=== PATIENT | female | born 2000 | race Caucasian/White ===

== ENCOUNTER 2022-01-26 13:14 | Emergency (ER) | payer OTHER, SELFPAY ==
[2022-01-26] VITALS (9 sets, daily range): BP systolic 92–115; BP diastolic 61–78; PULSE 92–115; RESP 12–20; TEMP 36.8; O2SAT 95–99
--- NOTE | 2022-01-26 13:23 | ECG_ITS ---
Measurements Intervals [place] Rate: 113 P: 28 DE: 126 QRS: 53 QRSD: 78 T: 34 QT: 306 QTc: 420 Interpretive Statements SINUS TACHYCARDIA BORDERLINE ECG COMPARED TO ECG 09/03/2018 23:09:02 NO SIGNIFICANT CHANGE Electronically Signed On 01-26-2022 18:28:20 CDT by Ayad Ritchie M.D.
[2022-01-26 13:36] LABS: Basophils Absolute Auto 0.1 K/mm3 (0.0-0.1); Basophils Percent Auto 0.8 % (0.2-1.2); Eosinophils Absolute Auto 0.5 K/mm3 (0-0.3); Eosinophils Percent Auto 8.3 % (0-4.4); Hematocrit 41.2 % (37.0-47.0); Hemoglobin 13.6 g/dL (12.0-15.0); Immature Granulocyte Absolute 0.01 K/mm3 (0.00-0.031); Immature Granulocyte Percent A 0.2 % (0-0.5); Lymphocytes Absolute Auto 1.68 K/mm3 (0.9-3.2); Lymphocytes Percent Auto 25.8 % (18.3-44.2); Mean Corpuscular Hemoglobin 30.7 pg (26-34); Mean Platelet Volume 10.3 fl (7.4-10.4); Monocytes Absolute Auto 0.7 K/mm3 (0.1-0.6); Monocytes Percent Auto 11.1 % (2.6-8.5); Neutrophils Absolute Auto 3.5 K/mm3 (1.3-6.7); Neutrophils Percent Auto 53.8 % (45.5-73.1); Platelet Count Result 470 k/mm3 (150-375); Red Blood Count 4.43 M/mm3 (4.2-5.4); Red Cell Distribution Width 12.5 % (11.5-14.5); White Blood Count 6.5 K/mm3 (4.5-10.0)
[2022-01-26 13:47] LABS: Alanine Aminotransferase 162 U/L (6-35); Albumin Level 4.6 g/dL (3.5-5.1); Alkaline Phosphatase 93 U/L (38-126); Anion Gap 10 mmol/L (8-16); Aspartate Amino Transferase 101 U/L (14-36); Bilirubin,Total 0.4 mg/dL (0.2-1.3); Blood Urea Nitrogen 15 mg/dL (7-17); Carbon Dioxide 30 mmol/L (22-30); Chloride 102 mmol/L (98-107); Estimated CRCL calculation 160 ml/min; Estimated Glomerular Filt Rate > 60; Glucose 111 mg/dL (65-110); Potassium 4.5 mmol/L (3.4-5.0); Sodium 142 mmol/L (137-145)
--- NOTE | 2022-01-26 13:49 | ED.SYNCOPE ---
HPI - Syncope General Chief Complaint: Syncope Stated Complaint: syncope, Time Seen by Provider: 01/26/22 13:35 History of Present Illness HPI narrative: 21-year-old female presents to the emergency room today for syncopal episode while walking. She is currently homeless for the past couple of weeks. She was recently released from [facility] and was staying in a hotel for a little while but has been homeless for the past 2 weeks. She thinks that she got overheated today and that is why she passed out. The syncope happened about 2 hours prior to coming. She is also wanting to get checked for abnormal vaginal discharge. She says that it is discolored and has a bad odor to it. She does not have any abdominal pain or back pain. No dysuria or hematuria. No fever or chills. Related Data Allergies Allergy/AdvReac Type Severity Reaction Status Date / Time No Known Allergies Allergy Unknown Verified 01/26/22 13:27 Review of Systems Review of Systems: CONSTITUTIONAL: Denies fever, chills, or sweats. EYES: Denies visual changes, redness, or discharge. ENT: Denies rhinorrhea, congestion, sore throat, or otalgia. CARDIOVASCULAR: Denies chest pain, palpitations, or edema. RESPIRATORY: Denies cough or dyspnea. GASTROINTESTINAL: Denies abdominal pain, nausea, vomiting, or diarrhea. GENITOURINARY: Denies dysuria or hematuria. reports abnormal vaginal discharge SKIN: Denies rash or itching. MUSCULOSKELETAL: Denies back pain, joint pain, or myalgia. NEUROLOGIC: syncope PSYCHIATRIC: Denies anxiety or depression. Exam Narrative: GENERAL: Well-appearing, well-nourished, and in no acute distress. HEAD: Normocephalic, atraumatic. EYES: PERRLA and EOMI. ENT: Nares clear, no rhinorrhea or epistaxis. Mucous membranes moist. Oropharynx without tonsillar hypertrophy exudate or other lesions. Bilateral TMs pearly henderson nonbulging NECK: Supple. No adenopathy or masses. No carotid bruits or JVD CHEST: Clear to auscultation. No respiratory distress. No wheezes rales or rhonchi HEART: Regular rate and rhythm. No murmur heard. Normal peripheral pulses. ABDOMEN: Soft, nontender, nondistended, normal active bowel sounds. EXTREMITIES: Normal range of motion. No edema. SKIN: Warm, dry, no rash. NEURO: No focal deficits. Alert and oriented x3. PSYCH: Normal mood and affect. Course Vital Signs Vital signs: Vital Signs Temperature 36.8 C 01/26/22 13:20 Pulse Rate 109 H 01/26/22 13:20 Respiratory Rate 20 01/26/22 13:20 Blood Pressure 114/69 01/26/22 13:20 Pulse Oximetry 97 01/26/22 13:20 Oxygen Delivery Room Air 01/26/22 13:20 Temperature 36.8 C 01/26/22 13:20 Pulse Rate 108 H 01/26/22 16:28 Respiratory Rate 20 01/26/22 16:28 Blood Pressure 115/78 01/26/22 16:28 Pulse Oximetry 99 01/26/22 16:28 Oxygen Delivery Room Air 01/26/22 13:20 MDM - Syncope Lab Data Attestation: I reviewed the patient's lab results. Result diagrams: 01/26/22 13:30 01/26/22 13:30 Labs: Lab Results 01/26/22 01/26/22 01/26/22 Range/Units 13:30 13:30 13:30 WBC 6.5 (4.5-10.0) K/mm3 RBC 4.43 (4.2-5.4) M/mm3 Hgb 13.6 (12.0-15.0) g/dL Hct 41.2 (37.0-47.0) % MCV 93.0 (80-100) fl MCH 30.7 (26-34) pg MCHC 33.0 (32-36) g/dl RDW 12.5 (11.5-14.5) % Plt Count 470 H (150-375) k/mm3 MPV 10.3 (7.4-10.4) fl Immature Gran % (Auto) 0.2 (0-0.5) % Neut % (Auto) 53.8 (45.5-73.1) % Lymph % (Auto) 25.8 (18.3-44.2) % Boyle % (Auto) 11.1 H (2.6-8.5) % Eos % (Auto) 8.3 H (0-4.4) % Baso % (Auto) 0.8 (0.2-1.2) % Lymph # (Auto) 1.68 (0.9-3.2) K/mm3 Boyle # (Auto) 0.7 H (0.1-0.6) K/mm3 Eos # (Auto) 0.5 H (0-0.3) K/mm3 Baso # (Auto) 0.1 (0.0-0.1) K/mm3 Abs Immat Gran (auto) 0.01 (0.00-0.031) K/mm3 Absolute Neuts (auto) 3.5 (1.3-6.7) K/mm3 Absolute Nucleated RBC 0.0 (0.0-0.012) K/mm3 Nucleated RBC % 0.0 (0.0-0.
--- NOTE | 2022-01-26 14:40 | PC.NURSE ---
Refusing IV at this time. Chelle, provider, notified and no new orders received.
[2022-01-26 14:42] LABS: Appearance Urine Cloudy (Clear); Bilirubin Urine 1+ (Negative); Color Urine Yellow (Yellow); Glucose Urine UA Negative (Negative); Ketones Urine Trace mg/dL (Negative); Leukocyte Esterase Ur 2+ LEU/UL (Negative); Nitrate Urine Negative (Negative); Protein Urine Trace mg/dL (Negative); Urobilinogen Urine 0.2 mg/dL (<2.0); pH Urine 5.5 (5.0-9.0)
[2022-01-26 14:45] LABS: Add Urine Microscopic? YES; Blood Urine Trace-Intact (Negative)
[2022-01-26 14:50] LABS: Bacteria Urine Trace /hpf; Mucus Urine Rare /lpf; Squamous Epithelial Cell Urine Many /hpf (Few); WBC Urine >75 /hpf
--- NOTE | 2022-01-26 14:53 | PC.NURSE ---
EDP made aware pt is refusing IV. EDP ok with not obtaining IV access and not infusing fluids ordered.
[2022-01-26] MEDS: cefTRIAXone 1 GM VIAL 0.5 GM IM (15:51)
[2022-01-26] MEDS: metroNIDAZOLE 250 MG TABLET 2000 MG PO (15:52)
[2022-01-26] MEDS: AZITHROMYCIN 250 MG TABLET 1000 MG PO (15:52)
[2022-01-26 17:00] LABS: Hepatitis B Surface Antigen Negative (Negative)
[2022-01-26 17:06] LABS: HAV RESULT Negative (Negative); Hepatitis B Core IgM Result Negative (Negative)
[2022-01-26 17:10] LABS: HIV 1/2 Ab P24 Ag Result Negative (Negative)
[2022-01-26 17:18] LABS: Hepatitis C Virus Antibody Negative (Negative)
== END 2022-01-26 16:28 | disposition home or self-care (01) ==
PROVIDERS: Emergency Medicine; Emergency Provider Nurse Practitioner Family
DX: R55 Syncope and collapse (principal); N39.0 Urinary tract infection, site not specified; N76.0 Acute vaginitis; Z59.00 Homelessness unspecified
CPT/HCPCS: 36415; 80053; 80074; 81001; 81025; 85025; 86703; 87070; 87086; 87088; 87491; 87591; 87808; 93005; 96372; 99284; A9270; G0432; J0696

== ENCOUNTER 2024-09-01 19:41 | Emergency (ER) | payer OTHER, SELFPAY ==
--- OUTSIDE RECORDS SUMMARY | 2024-09-01 19:42 | XMS_ITS | Clinical Summary ---
Author Organization [facility] Address [facility] [place] [address] Care Team Providers Care Waste Cotton Cleaner Name Role Phone New Referring, Provider Primary Care Provider Un available Allergies No known active allergies Medications lidocaine 4 % patch Place 1 patch onto the skin daily. Remove & Discard patch within 12 hours or as directed by 30 patch 12/25/2022 Active Active Problems Problem Noted Date Diagnosed Date Syncope 12/20/2022 Seizure ([facility]) 05/22/2021 Family History Medical History Relation Comments Seizures Father as child Relation Status Comments Father Social History Tobacco Use Types Packs/Day Years Used Date Smoking Tobacco: Former Cigarettes Q uit: 05/31/2022 Smokeless Tobacco: Never Alcohol Use Standard Drinks/Week Comments No 0 (1 standard drink = 0.6 oz pur e alcohol) Humiliation, Afraid, Rape, and Kick questionnair e Answer Date Recorded Within the last year, have y ou been afraid of your partner or ex-partner? Patient declined 12/21/2022 Within the last year, have y ou been humiliated or emotionally abused in other ways by your partner or ex-partner? Patient declined 12/21/2022 Within the last year, have y ou been kicked, hit, slapped, or otherwise physically hurt by your partner or ex-partner? Patient declined 12/21/2022 Within the last year, have y ou been raped or forced to have any kind of sexual activity by your partner or ex-partner? Patient declined 12/21/2022 Social Connection and Isolation Panel [NHANES] A nswer Date Recorded In a typical week, how many times do you talk on the phone with family, friends, or neighbors? Patient declined 12/21/2022 How often do you get togethe r with friends or relatives? Patient declined 12/21/2022 How often do you attend temple or quaker serv ices? Patient declined 12/21/2022 Do you belong to any clubs o r organizations such as temple groups, unions, fraternal or athletic groups, or school groups? Patient declined 12/21/2022 How often do you attend meet ings of the clubs or organizations you belong to? Patient declined 12/21/2022 Are you , , di vorced, , never , or living with a partner? Patient declined 12/21/2022 AUDIT-C Answer Date Recorded Q1: How often do you have a drink containing alc ohol? Patient declined 12/21/2022 Q2: How many drinks containi ng alcohol do you have on a typical day when you are drinking? Patient declined 12/21/2022 Q3: How often do you have si x or more drinks on one occasion? Patient declined 12/21/2022 Overall Financial Resource Strain (CARDIA) Answe r Date Recorded How hard is it for you to pa y for the very basics like food, housing, medical care, and heating? Patient declined 12/21/2022 [facility] - Occupational Stress Questionnaire Answer Date Recorded Do you feel stress - tense, restless, nervous, or anxious, or unable to sleep at night because your mind is troubled all the time - these days? Patient declined 12/21/2022 Exercise Vital Sign Answer Date Recorde d On average, how many days pe r week do you engage in moderate to strenuous exercise (like a brisk walk)? Patient declined On average, how many minutes do you engage in exercise at this level? Patient declined 12/21/2022 Hunger Vital Sign Answer Date Recorded Within the past 12 months, y ou worried that your food would run out before you got the money to buy more. Patient declined Within the past 12 months, t he food you bought just didn't last and you didn't have money to get more. Patient declined PRAPARE - Transportation Answer Date Re corded In the past 12 months, has l ack of transportation kept you from medical appointments or from getting medications? Patient declined 12/21/2022 In the past 12 months, has l ack of transportation kept you from meetings, work, or from getting things needed for daily living? Patient declined 12/21/2022 Housing Stability Vital Sign Answer Taran e Recorded In the last 12 months, was t here a time when you were not able to pay the mortgage or rent on time? Patient refused 12/22/19 23 In the last 12 months, how many places have you lived? 1 12/21/2022 In the last 12 months, was t here a time when you did not have a steady place to sleep or slept in a half-way (including now)? Patient refused 12/21/2022 Comments No Sex and Gender Information Value Date Recorded Sex Assigned at Not on file Legal Sex Female 7:19 PM CDT Gender Identity Not on file Sexual Orientation Not on file Last Filed Vital Signs Vital Sign Reading Time Taken Comments Blood Pressure 135/72 12/24/2022 2:02 PM CDT Pulse 106 12/24/2022 2:02 PM CDT Temperature 36.3 C (97.3 F) 12/24/2022 2:02 PM CDT Respiratory Rate 16 12/24/2022 2:02 PM CDT Oxygen Saturation 99% 12/24/2022 2:02 PM CDT Inhaled Oxygen Concentration - - Weight 91 kg (200 lb 9.9 oz) 12/20/2022 1:09 PM CDT Height 157.5 cm (5' 2 ) 12/20/2022 1:09 PM CDT Body Mass Index 36.69 12/20/2022 1:09 PM CDT Plan of Treatment Health Maintenance Due Date Last Done Comments Annual Physical 2004 DTaP, Tdap and Td Vaccines (6 - Tdap) 2012 11/18/2005, 11/16/2002, 2001, Additional history exists Meningococcal B Vaccine (1 of 2 - Standard) 2017 Hepatitis B Vaccines (1 of 3 - 19+ 3-dose series) 2020 Cervical Cancer Screening Pap Smear (Age 21 to 29) Every 3 Years 01/05/2022 01/05/2019, 09/04/2018 Cervical Cancer Screening 01/05/2022 COVID-19 Vaccine ( season) 2024 Influenza Adult (#1) 2024 PHQ-2 (Physician [place]) 06/06/2024 Meningococcal Vaccine Aged Out 01/30/2013 No valerie giovanna eligible based on patient's age to complete this topic HPV Vaccines Completed 03/02/2016, 08/06, 01/30/2013 Hepatitis C Completed 12/20/2022 Pneumococcal Vaccine: Pediatrics (0 to 5 Years) and At-Risk Patients (6 to 64 Years) Aged Out No longer eligible based on patient's age to complete this topic RSV Immunizations Under 20 Months Aged Out No longer eligible based on patient's age to complete this topic Goals Goal Patient Goal Type Associated Problems Recent Progress Patient-Stated? Author Safety - demonstrates understanding of home safety measures General No Tootie Lopes, RN Patient will return to prior living situation and remain independent in ADLs upon discharge from hospital Lifestyle No Sadia Wright LSW Procedures Procedure Name Priority Date/Time Associated Diagnosis Comments HEPATITIS PANEL,ACUTE STAT 12/20/2022 8:30 PM CDT from Last 3 Months or Most Recently Relevant to Health Maintenance Results * HEPATITIS PANEL,ACUTE (12/20/2022 8:30 PM CDT) HEPATITIS B SURFACE AG NON-REACTI VE NON-REACTI VE 12/20/2022 10:54 PM CDT [facility] HEP B CORE IGM NON-REACTI VE NON-REACTI VE 12/20/2022 10:54 PM CDT [facility] HAV IGM NON-REACTI VE NON-REACTI VE 12/20/2022 10:54 PM CDT [facility] HEPATITIS C AB NON-REACTI VE NON-REACTI VE 12/20/2022 10:54 PM CDT [facility] 12/20/2022 8:30 PM CDT [facility] Final Result [facility] [address] [place] [address], from Last 3 Months or Most Recently Relevant to Health Maintenance Insurance [employer] Advance Directives * Full Code (Latest Code Status on File) Date Activated Date Inactivated Comments 12/20/2022 9:49 PM 12/24/2022 6:11 PM * Full Code Date Activated Date Inactivated Comments 05/22/2021 5:14 AM 05/23/2021 5:08 PM Care Teams Waste Cotton Cleaner Relationship Specialty Start Date End Date New Referring, Provider PCP - General UNKNOWN PHYSICIAN SPECIALTY 05/02/19
--- OUTSIDE RECORDS SUMMARY | 2024-09-01 19:42 | XMS_ITS | Referral Summary ---
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 Low concern for any suicidal ideation, but there is a high level of concern for the possibility of recurrence. She is s/p 8mg Narcan with resolution of obtundation/respiratory depression and is near her baseline status. Additional history provided regarding coughing up bloody secretions is possibly secondary to airway inflammation from aspiration event, but she continues to not show any signs concerning of aspiration pneumonia. Comprehensive urine drug screen revealed metabolites of previously undisclosed drugs of abuse, including Tramadol and Clonazepam. Toxicology is following and recommendations are appreciated. Plan: - Continuous CR monitors and pulse ox - Regular diet - Ibuprofen PRN for headache - Toxicology and social work therapist following - Will consult [facility] today for behavioral and psychiatric assessment - Vitals q8hrs - Monitor IOs, increased risk for urinary retention Social History Tobacco Use Types Packs/Day Years Used Date Smoking Tobacco: Every Day Alcohol Use Standard Drinks/Week Comments Yes 0 (1 standard drink = 0.6 oz pur e alcohol) Personal Safety Answer Date Recorded Have you ever been in or are you currently in a harmful physical or emotional relationship or is someone making you feel afraid or unsafe? Denies 02/03/2024 Comments Unknown Sex and Gender Information Value Date Recorded Sex Assigned at Not on file Legal Sex Female 7:19 PM FX ARTIST Gender Identity Not on file Sexual Orientation Not on file Last Filed Vital Signs Vital Sign Reading Time Taken Comments Blood Pressure 122/87 02/06/2024 11:08 AM CDT Pulse 107 02/06/2024 11:08 AM CDT Temperature 37 C (98.6 F) 02/06/2024 11:08 AM CDT Respiratory Rate 20 02/06/2024 11:0 8 AM CDT Oxygen Saturation 100% 02/06/2024 11: 08 AM CDT Inhaled Oxygen Concentration - - Weight 94.2 kg (207 lb 11.2 oz) 024 10:35 PM CDT Height 157.5 cm (5' 2 ) 02/03/2024 10:3 5 PM CDT Body Mass Index 37.99 02/03/2024 10:35 PM CDT Plan of Treatment Not on file Procedures Procedure Name Priority Date/Time Associated Diagnosis Comments HEPATITIS PANEL, ACUTE Routine 02/05/2024 5:13 PM CDT from Last 3 Months or Most Recently Relevant to Health Maintenance Results * Hepatitis panel, acute Blood (02/05/2024 5:13 PM CDT) Hep A IgM Nonreactive Nonreactive Comment: Interpretive Data: If Hep A IgM Ab is reported as Equivocal, a new sample should be drawn in two weeks for testing. Current interpretive data was last revised on 19. Hep B core IgM Nonreactive Nonreactive AMY Comment: Interpretive Data If HepB Core IgM Ab is reported as Equivocal, a new sample should be drawn in two weeks for testing. Current interpretive data was last revised on 19. Hep C Ab Nonreactive Nonreactive AMY Comment: Antibodies to HCV not detected. Does NOT exclude the possibility of recent exposure to HCV. Current interpretive data was last revised on 22 Interpretive Data Nonreactive: Antibodies to HCV not detected. Does NOT exclude the possibility of recent exposure to HCV. Equivocal: Equivocal for HCV antibodies. Supplemental molecular testing will be automatically performed to determine infection status in accordance with current CDC screening recommendations. Reactive: Positive for HCV antibodies. This may represent current or past HCV infection. Supplemental molecular testing will be automatically performed to determine current infection status in accordance with current CDC screening recommendations. Interpretive data was last revised on 2019. HepBsAg Nonreactive Nonreactive ARTEBONY ROXANA Blood 02/05/2024 5:13 PM CDT 02/05/2024 5:20 PM CDT Ricardo Pearson MD LAB MICROBIOLOG Y - GENERAL ORDERABLES Final Result [facility] [address] [facility] Department [place] [address] from Last 3 Months or Most Recently Relevant to Health Maintenance Insurance [facility] [employer] [facility] Advance Directives For more information, please contact: [phone] * Full Code (Latest Code Status on File) Date Activated Date Inactivated Comments 02/03/2024 10:23 PM 02/06/2024 7:30 PM Care Teams Founder Relationship Specialty Start Date End Date No, Physician PCP - General 12/06/22
--- OUTSIDE RECORDS SUMMARY | 2024-09-01 19:43 | XMS_ITS | Clinical Summary ---
Author Organization [facility] Address [address] [place] [address] Care Team Providers Care Publicity Manager Name Role Phone Unavailable Primary Care Provider Unavailabl e Source Comments [facility],non-owned Affiliates and Associated Physician Practices is amultiple site organization consisting of ambulatory clinics and hospital sitesin [place], [place], [place] and [place]. This disclosure is being madepursuant to the Care Everywhere program and may not contain all information available regarding this patient. Last updated 18.[facility] Allergies No known active allergies Medications Be aware that medications may not be up to date on this document. Always verify current medications with the patient. No known medications Active Problems Problem Noted Date Diagnosed Date Fentanyl overdose 09/04/2018 Assessment & Plan (09/05/2018 12:11 PM CDT): Assessment: Riddhi Romero is a 18yo female [...] PRN for headache - Toxicology and social service agency director following - Will consult MAXIMILIANO today for behavioral and psychiatric assessment - Vitals q8hrs - Monitor IOs, increased risk for urinary retention Assessment & Plan (09/04/2018 2:22 PM CDT): Assessment: Riddhi Romero is a 18yo female who presents after fentanyl overdose from recreational use. Very low concern for any suicidal ideation. She is s/p 8mg Narcan with resolution of obtundation/respiratory depression and is near her baseline status, with exception of mild headache and somewhat slow speech (may be her regular speech). There is some concern for a possible aspiration event with choking on emesis and CXR seems consistent with aspiration pneumonitis. CBC showed a lymphocytosis with neutrophil predominance, which may be indicative of early infection vs pneumonitis with demarginalization of pulmonary neutrophils. Lung exam was nonfocal, but will need continued observation of infectious symptoms. Plan: - Admit to Pediatrics, Dr. Kamara - Continuous CR monitors and pulse ox - Regular diet - Ibuprofen PRN for headache - Toxicology and social service agency director consult, recommendations appreciated - Vitals q8hrs - Monitor IOs, increased risk for urinary retention High risk heterosexual behavior 09/04/2018 Assessment & Plan (09/05/2018 12:13 PM CDT): Assessment: Riddhi endorses sexual activity with one male partner with inconsistent use of condoms and no other form of control. STI screening, including HIV and GC/Chlamydia, has been unremarkable. Plan: - Discussed safe sexual practices Assessment & Plan (09/04/2018 2:15 PM CDT): Assessment: Riddhi endorses sexual activity with one male partner with inconsistent use of condoms and no other form of control. Unsure if she has been tested for STIs. Plan: - Obtain Urine GC/Chlamydia, HCG - Obtain HIV antibody panel Fentanyl poisoning, undetermined intent, initial encounter Marijuana abuse Mild tramadol abuse Mild clonazepam abuse Social History Tobacco Use Types Packs/Day Years Used Date Smoking Tobacco: Some Days Cigarettes 0.5 9 Started: 09/05/2015 Smokeless Tobacco: Never Comments:and marijuana AUDIT-C Answer Date Recorded Q1: How often do you have a drink containing alcohol? Never 12/01/2023 Q2: How many drinks containi ng alcohol do you have on a typical day when you are drinking? Patient does not drink Q3: How often do you have si x or more drinks on one occasion? Never 12/01/2023 Sex and Gender Information Value Date Recorded Sex Assigned at Not on file Gender Identity Not on file Sexual Orientation Not on file Last Filed Vital Signs Vital Sign Reading Time Taken Comments Blood Pressure 103/58 12/01/2023 4:32 PM CDT Pulse 96 12/01/2023 2:40 PM CDT Temperature 36.6 C (97.8 F) 12/01/2023 2:40 PM CDT Respiratory Rate 20 12/01/2023 2:40 PM CDT Oxygen Saturation 97% 12/01/2023 3:57 PM CDT Inhaled Oxygen Concentration - - Weight 81.6 kg (180 lb) 12/01/2023 2:40 PM CDT Height 157.5 cm (5' 2 ) 12/01/2023 2:40 PM CDT Body Mass Index 32.92 12/01/2023 2:40 PM CDT Plan of Treatment Health Maintenance Due Date Last Done Comments PAP SMEAR 2001 HPV VACCINE (1 - 3-dose series) 2016 MENINGOCOCCAL (Group B) VACCINE SHARED DECISION-MAKING (1 of 2 - Standard) 2017 DTAP/TDAP/TD VACCINES (1 - Tdap) 2020 HEPATITIS B VACCINE (1 of 3 - 19+ 3-dose series) 2020 PNEUMOCOCCAL VACCINE (1 of 2 - PCV) 2020 COVID-19 VACCINE (1 - season) 2024 INFLUENZA VACCINE (#1) 2024 03/02/2016 DEPRESSION SCREENING 06/06/2024 CHLAMYDIA/GONORRHEA SCREENING 11/30/2024 12/01/2023, 05/21/2022, 02/24/2021, Additional history exists ZOSTER VACCINE (1 of 2) 2051 HIV SCREENING Completed 01/05/2019, 09/04/2018 HEPATITIS C SCREENING Completed 12/20/2022 HIB VACCINE Aged Out No longer eligi ble based on patient's age to complete this topic MENINGOCOCCAL GROUPS A/C/Y/W VACCINE Aged Out No longer eligible based on patient's age to complete this topic Procedures Procedure Name Priority Date/Time Associated Diagnosis Comments CHLAMYDIA + GC AMPLIFIED PROBE ADDL SRCS STAT 12/01/2023 4:00 PM CDT HIV-1 HIV-2 ANTIBODY + HIV P24 AG PANEL STAT 01/05/2019 8:44 PM CDT from Last 3 Months or Most Recently Relevant to Health Maintenance Results * (ABNORMAL) CHLAMYDIA + GC AMPLIFIED PROBE ADDL SRCS (12/01/2023 4:00 PM CDT) Chlamydia Amplified Probe Positive(A) Negative 12/04/2023 10:52 AM CDT [facility] ([facility]) Comment: INTERPRETIVE INFORMATION: C. trachomatis by TMA This test is intended for medical purposes only and is not valid for the evaluation of suspected sexual abuse or for other forensic purposes. In certain contexts, culture may be required to meet applicable laws and regulations for diagnosis of C. trachomatis and N. gonorrhoeae infections. Per 2014 CDC recommendations, this test does not include confirmation of positive results by an alternative nucleic acid target. [employer] Type Unisex Swab 12/04/2023 10:52 AM CDT [facility] ([facility]) Source Cervical 12/04/2023 10:52 AM CDT [facility]) GC Amplified Probe Negative Negative 12/04/2023 10:52 AM CDT [facility] ([facility]) Comment: INTERPRETIVE INFORMATION: N. gonorrhoeae by TMA This test is intended for medical purposes only and is not valid for the evaluation of suspected sexual abuse or for other forensic purposes. In certain contexts, culture may be required to meet applicable laws and regulations for diagnosis of C. trachomatis and N. gonorrhoeae infections. Per 2014 CDC recommendations, this test does not include confirmation of positive results by an alternative nucleic acid target. Performed By: [facility] [address] [place] [id number] Funding Specialist: Paulo Moran MD, PhD CLIA Number: [id number] Microbiology PART OF UTERINE CERVIX / Unknown Collection / Unknown 12/01/2023 4:00 PM CDT 12/01/2023 4:04 PM CDT Vandana Law APRN-LUMBER MARKER LAB - MICROBIOLOG Y ORDERABLES [facility] ([facility]) [address] * HIV-1 HIV-2 ANTIBODY + HIV P24 AG PANEL (01/05/2019 8:44 PM CDT) HIV1/2 Ab + P24 Ag Non Reactive Non Reactive 01/05/2019 9:43 PM CDT [facility] Blood BLOOD SPECIMEN / Unknown Venipuncture / Unknown 01/05/2019 8:44 PM CDT 01/05/2019 8:50 PM CDT Narrative [facility] - 01/05/2019 9:43 PM CDT No Laboratory evidence of HIV infection. Nidhi Juarez MD LAB - CHEMISTRY [place] [facility] [address] [place] [address] from Last 3 Months or Most Recently Relevant to Health Maintenance Advance Directives * Full Code (Latest Code Status on File) Date Activated Date Inactivated Comments 09/04/2018 3:40 AM 09/05/2018 7:20 PM
--- OUTSIDE RECORDS SUMMARY | 2024-09-01 19:43 | XMS_ITS | Clinical Summary ---
Author Organization [facility] Address [address] [place] [id number] Care Team Providers Care Pharmacy Resource Tech Name Role Phone No, Physician Primary Care Provider [phone] Allergies No known active allergies Medications No [...] PRN for headache - Toxicology and social services director following - Will consult MAXIMILIANO today for behavioral and psychiatric assessment - Vitals q8hrs - Monitor IOs, increased risk for urinary retention Medical History Medical History Date Comments Opiate overdose (HCC) Polysubstance abuse (HCC) Social History Tobacco Use Types Packs/Day Years [...] on file 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 Gender Identity Not on file Sexual Orientation Not on file Obstetrics History Last Filed Vital Signs Vital Sign Reading [...] 02/03/2024 10:35 PM CDT Plan of Treatment Health Maintenance Due Date Last Done Comments Cervical Cancer Screening 2001 Depression Screening 2001 Pneumococcal vaccine <65 (1 of 1 - PPSV23) 2007 08/14/2002, 06/28/2002, 2001, Additional history exists Meningococcal B Vaccine (1 o f 2 - Standard) 2017 Regular Well Visit/Exam 18-64 2019 DTaP/Tdap/Td Vaccine (7 - Td or Tdap) 01/30/2023 01/30/2013, 11/18/2005, 11/16/2002, Additional history exists Influenza Vaccine (#1) 2024 03/02/2016 Hepatitis B Screening Completed 06/28/2002 , 2001, 2001 Varicella Vaccines Completed 02/03/2007, 08/14/2002 HPV Vaccines Completed 03/02/2016, 08/06, 01/30/2013 Hepatitis C Screening Completed 02/05/2024 Procedures Procedure Name Priority Date/Time Associated Diagnosis [...] 19. Hep B core IgM Nonreactive Nonreactive [facility] Comment: Interpretive Data If HepB Core IgM Ab is reported as Equivocal, a new sample should be drawn in two weeks for testing. Current interpretive data was last revised on 19. Hep C Ab Nonreactive Nonreactive [facility] Comment: Antibodies to HCV not detected. Does [...] last revised on 2019. HepBsAg Nonreactive Nonreactive [facility] Blood 02/05/2024 5:13 PM CDT 02/05/2024 5:20 PM CDT Ricardo Pearson MD LAB MICROBIOLOG Y - GENERAL ORDERABLES Final Result [facility] [address] [facility] Department [place] [address] from Last 3 Months or Most Recently Relevant to Health Maintenance Insurance [place] [facility] AETNA BETTER [facility] Advance Directives For more information, please contact: [phone] * Full Code (Latest Code Status on File) Date Activated Date Inactivated Comments 02/03/2024 10:23 PM 02/06/2024 7:30 PM Care Teams Pharmacy Resource Tech Relationship Specialty Start Date End Date No, Physician PCP - General 12/06/22
[2024-09-01 20:04] VITALS: BP 107/60; PULSE 89; RESP 16; TEMP 36.3; O2SAT 99
[2024-09-01 20:18] LABS: Basophils Percent Auto 0.3 % (0.2-1.2); Eosinophils Absolute Auto 0.1 K/mm3 (0-0.3); Eosinophils Percent Auto 0.5 % (0-4.4); Hematocrit 37.2 % (37.0-47.0); Hemoglobin 12.8 g/dL (12.0-15.0); Immature Granulocyte Absolute 0.03 K/mm3 (0.00-0.031); Immature Granulocyte Percent A 0.3 % (0-0.5); Lymphocytes Percent Auto 12.1 % (18.3-44.2); Mean Corpuscular HGB Conc 34.4 g/dl (32-36); Mean Corpuscular Hemoglobin 31.1 pg (26-34); Mean Corpuscular Volume 90.3 fl (80-100); Mean Platelet Volume 10.5 fl (7.4-10.4); Monocytes Absolute Auto 1.2 K/mm3 (0.1-0.6); Monocytes Percent Auto 10.5 % (2.6-8.5); Neutrophils Absolute Auto 8.8 K/mm3 (1.3-6.7); Neutrophils Percent Auto 76.3 % (45.5-73.1); Platelet Count Result 412 k/mm3 (150-375); Red Blood Count 4.12 M/mm3 (4.2-5.4); Red Cell Distribution Width 11.8 % (11.5-14.5); White Blood Count 11.6 K/mm3 (4.5-10.0)
[2024-09-01 20:28] LABS: Alanine Aminotransferase 38 U/L (6-35); Albumin Level 4.5 g/dL (3.5-5.1); Alkaline Phosphatase 76 U/L (38-126); Anion Gap 11 mmol/L (4-12); Aspartate Amino Transferase 30 U/L (14-36); Bilirubin,Total 0.7 mg/dL (0.2-1.3); Blood Urea Nitrogen 7 mg/dL (7-17); Calcium 9.2 mg/dL (8.4-10.2); Carbon Dioxide 23 mmol/L (22-30); Chloride 100 mmol/L (98-107); Estimated CRCL calculation 171 ml/min; Estimated Glomerular Filt Rate > 60; Glucose 114 mg/dL (65-110); Lipase 34 U/L (23-300); Potassium 3.6 mmol/L (3.4-5.0); Sodium 134 mmol/L (137-145)
--- OUTSIDE RECORDS SUMMARY | 2024-09-01 21:37 | XMS_ITS | Clinical Summary ---
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 Hep B core IgM Nonreactive Nonreactive [facility] Comment: Interpretive Data If HepB Core IgM Ab is reported as Equivocal, a new sample should be drawn in two weeks for testing. Current interpretive data was last revised on 19. Hep C Ab Nonreactive Nonreactive [facility] Comment: Antibodies to HCV not detected. Does [...] last revised on 2019. HepBsAg Nonreactive Nonreactive [facility] Blood 02/05/2024 5:13 PM CDT 02/05/2024 5:20 PM CDT Ricardo Pearson MD LAB MICROBIOLOG Y - GENERAL ORDERABLES Final Result [facility] [address] Department [place] [address] from Last 3 Months or Most Recently Relevant to Health Maintenance Insurance [place] BETTER [facility] AETNA BETTER [facility] Advance Directives For more information, please contact: [phone] * Full Code (Latest Code Status on File) Date Activated Date Inactivated Comments 02/03/2024 10:23 PM 02/06/2024 7:30 PM Care Teams Shot Grinder Operator Relationship Specialty Start Date End Date No, Physician PCP - General 12/06/22
--- OUTSIDE RECORDS SUMMARY | 2024-09-01 21:37 | XMS_ITS | Clinical Summary ---
Author Organization [facility] Address [facility] [place] [address] Care Team Providers Care Sql Database Developer Name Role Phone New Referring, Provider Primary Care Provider Un available Allergies No known active allergies Medications lidocaine 4 % patch Place 1 patch onto the skin daily. Remove & Discard patch within 12 hours or as directed by 30 patch 12/25/2022 Active Active Problems Problem Noted Date Diagnosed Date Syncope 12/20/2022 Seizure ([facility]) 05/22/2021 Family History Medical History Relation Comments [...] declined 12/21/2022 How often do you attend samaritan or amish serv ices? Patient declined 12/21/2022 Do you belong to any clubs o r organizations such as samaritan groups, unions, fraternal or athletic groups, or [...] medical care, and heating? Patient declined 12/21/2022 [facility] - Occupational Stress [...] place to sleep or slept in a care home (including now)? Patient refused 12/21/2022 Comments No [...] 2024 Influenza Adult (#1) 2024 PHQ-2 ([facility]) 06/06/2024 Meningococcal Vaccine Aged Out 01/30/2013 No [...] VE NON-REACTI VE 12/20/2022 10:54 PM CDT [facility] HEP B CORE IGM NON-REACTI VE NON-REACTI VE 12/20/2022 10:54 PM CDT [facility] HAV IGM NON-REACTI VE NON-REACTI VE 12/20/2022 10:54 PM CDT [facility] HEPATITIS C AB NON-REACTI VE NON-REACTI VE 12/20/2022 10:54 PM CDT [facility] 12/20/2022 8:30 PM CDT [facility] Final Result [facility] [address] [place] [address], from Last 3 Months or Most Recently Relevant to Health Maintenance Insurance [employer] Advance Directives * Full Code (Latest Code Status on File) Date Activated Date Inactivated Comments 12/20/2022 9:49 PM 12/24/2022 6:11 PM * Full Code Date Activated Date Inactivated Comments 05/22/2021 5:14 AM 05/23/2021 5:08 PM Care Teams Sql Database Developer Relationship Specialty Start Date End Date New Referring, Provider PCP - General UNKNOWN PHYSICIAN SPECIALTY 05/02/19
--- OUTSIDE RECORDS SUMMARY | 2024-09-01 21:37 | XMS_ITS | Clinical Summary ---
Author Organization [facility] Address [address] [place] [address] Care Team Providers Care Mushroom Press Operator Name Role Phone Unavailable Primary Care Provider Unavailabl e Source Comments [facility],non-owned Affiliates and Associated Physician Practices is amultiple site organization consisting of ambulatory clinics and hospital sitesin [place], [place] and [place]. This disclosure is being madepursuant to the Care Everywhere program and may not contain all information available regarding this patient. Last updated 18.[employer] [facility] Allergies No known active allergies Medications Be [...] PRN for headache - Toxicology and social sciences professor following - Will consult MAXIMILIANO today for [...] PRN for headache - Toxicology and social sciences professor consult, recommendations appreciated - Vitals q8hrs - [...] Probe Positive(A) Negative 12/04/2023 10:52 AM CDT [facility] ([facility]) Comment: INTERPRETIVE INFORMATION: C. trachomatis by TMA [...] Type Unisex Swab 12/04/2023 10:52 AM CDT [facility] ([facility]) Source Cervical 12/04/2023 10:52 AM CDT [facility]) GC Amplified Probe Negative Negative 12/04/2023 10:52 AM CDT [facility] ([facility]) Comment: INTERPRETIVE INFORMATION: N. gonorrhoeae by TMA [...] an alternative nucleic acid target. Performed By: [facility] [address] [place] [id number] Supervisor Electronics Inspection: Paulo Moran MD, PhD CLIA Number: [id number] Microbiology PART OF UTERINE CERVIX / Unknown Collection / Unknown 12/01/2023 4:00 PM CDT 12/01/2023 4:04 PM CDT Vandana Law APRN-DRUM SPRAYER LAB - MICROBIOLOG Y ORDERABLES [facility] ([facility]) [address] * HIV-1 HIV-2 ANTIBODY + HIV P24 AG PANEL (01/05/2019 8:44 PM CDT) HIV1/2 Ab + P24 Ag Non Reactive Non Reactive 01/05/2019 9:43 PM CDT [facility] Blood BLOOD SPECIMEN / Unknown Venipuncture / Unknown 01/05/2019 8:44 PM CDT 01/05/2019 8:50 PM CDT Narrative [facility] - 01/05/2019 9:43 PM CDT No Laboratory evidence of HIV infection. Nidhi Juarez MD LAB - CHEMISTRY [place] [facility] [address] [place] [address] from Last 3 Months or Most Recently Relevant to Health Maintenance Advance Directives * Full Code (Latest Code Status on File) Date Activated Date Inactivated Comments 09/04/2018 3:40 AM 09/05/2018 7:20 PM
--- OUTSIDE RECORDS SUMMARY | 2024-09-01 21:37 | XMS_ITS | Referral Summary ---
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 Gender Identity Not on file Sexual Orientation [...] GENERAL ORDERABLES Final Result [facility] [address] [facility] Department [place] [address] from Last 3 Months or Most Recently Relevant to Health Maintenance Insurance [facility]NA [facility] Advance Directives For more information, please contact: [phone] * Full Code (Latest Code Status on File) Date Activated Date Inactivated Comments 02/03/2024 10:23 PM 02/06/2024 7:30 PM Care Teams Seismology Teacher Relationship Specialty Start Date End Date No, Physician PCP - General 12/06/22
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
[2024-09-01 22:08] LABS: BEDSIDEPREGUCG Positive (Negative)
== END 2024-09-02 01:58 | disposition left against medical advice (07) ==
PROVIDERS: Emergency Provider Emergency Medicine
DX: R11.10 Vomiting, unspecified (principal)
CPT/HCPCS: 36415; 80053; 81025; 83690; 85025; 99199